=== PATIENT | female | born 1955 | race Caucasian/White ===

== ENCOUNTER 2017-10-08 12:27 | Emergency (ER) | payer OTHER ==
[~2017-10-08] VITALS: Ht 154.9 cm; Wt 106.0 kg
[2017-10-08 14:24] LABS: INFLUENZA A NONE DETECTED (NONE DETECT); INFLUENZA B NONE DETECTED (NONE DETECT)
[2017-10-08] MEDS ORDERED: AMOXICILLIN500 M2 PO (15:39)
[2017-10-08] MEDS ORDERED: VENTOLIN HFA IN (15:39)
[2017-10-08] MEDS ORDERED: MEDDOSEPAK PO (15:39)
[2017-10-08 15:46] VITALS: BP 149/83
== END 2017-10-08 15:56 | disposition home or self-care (01) | DRG 203 ==
LOC: ED 12:27
PROVIDERS: Emergency Medicine
DX: J20.9 Acute bronchitis, unspecified (principal); R05 Cough

== ENCOUNTER 2017-10-19 12:14 | Emergency (ER) | payer OTHER ==
[~2017-10-19] VITALS: Ht 154.9 cm; Wt 104.0 kg
[~2017-10-19 12:14] MED LIST: AMOXICILLIN500 M2 PO; MEDDOSEPAK PO; VENTOLIN HFA IN
[2017-10-19] MEDS ORDERED: CITALOPRAM HYDR10 MG PO (12:52)
[2017-10-19] MEDS ORDERED: PANTOPRAZOLE SO40 M1 PO (13:02)
[2017-10-19] MEDS ORDERED: ANASTROZOLE1 MG PO (13:04)
[2017-10-19] MEDS ORDERED: GLYBURIDE2.5 M1 PO (13:04)
[2017-10-19 14:19] VITALS: BP 143/76
[2017-10-19] MEDS ORDERED: ULTRAM50 M1 PO (14:21)
== END 2017-10-19 14:25 | disposition home or self-care (01) | DRG 125 ==
LOC: ED 12:14
DX: H11.31 Conjunctival hemorrhage, right eye (principal); H53.8 Other visual disturbances; S05.11XA Contusion of eyeball and orbital tissues, right eye, initial encounter; W01.190A Fall on same level from slipping, tripping and stumbling with subsequent striking against furniture, initial encounter; Y93.01 Activity, walking, marching and hiking; Y92.009 Unspecified place in unspecified non-institutional (private) residence as the place of occurrence of the external cause; R22.0 Localized swelling, mass and lump, head

== ENCOUNTER 2018-08-21 08:33 | Emergency (ER) | payer OTHER ==
[~2018-08-21] VITALS: Ht 154.9 cm; Wt 100.0 kg
[~2018-08-21 08:33] MED LIST changes: +ANASTROZOLE1 MG PO; +CITALOPRAM HYDR10 MG PO; +GLYBURIDE2.5 M1 PO; +PANTOPRAZOLE SO40 M1 PO; +ULTRAM50 M1 PO
[2018-08-21 09:19] LABS: HEMATOCRIT 42.5 % (37.0-47.0); HEMOGLOBIN 14.1 g/dl (12.0-16.0); IMMATURE GRANULOCYTES 0.4 % (0.0-5.0); MEAN CELL VOLUME 97.3 fL CALC (80.0-100.0); MEAN CORPUSCULAR HGB 32.3 pG CALC (26.0-32.0); MEAN CORPUSCULAR HGB CONC 33.2 g/L CALC (32.0-36.0); NEUT# 3.34 thou/uL (2.00-7.15); RED BLOOD COUNT 4.37 mill/uL (4.20-5.60); RED CELL DISTRI WIDTH 13.1 % (11.5-15.5)
[2018-08-21 09:46] LABS: ALKALINE PHOSPHATASE 145 u/l (38-126); ANION GAP 16 (6-22 (CALC)); BILIRUBIN, TOTAL 0.5 mg/dL (0.0-1.4); BUN 15 mg/dL (8-23); BUN/CREATININE RATIO 43 (12-20 (CALC)); CARBON DIOXIDE 24 mmol/l (22-30); CHLORIDE 101 mmol/l (95-108); CREATININE 0.4 mg/dL (0.5-1.0); GFR > 60 ML/MIN (>=60 (CALC)); GFR FOR AFR.AMER. > 60 ML/MIN (>=60 (CALC)); POTASSIUM 4.8 mmol/l (3.5-5.1); SGOT/AST 93 u/l (9-36); SODIUM 136 mmol/l (137-146); TOTAL PROTEIN 7.3 g/dL (6.3-8.2)
[2018-08-21] MEDS ORDERED: TESSALON PERLE100 MG PO (10:05)
[2018-08-21] MEDS ORDERED: TYLENOL # 31 TA1 PO (10:05)
[2018-08-21] MEDS ORDERED: PREDNISONE10 MG PO (10:05)
[2018-08-21 10:32] VITALS: BP 177/88
== END 2018-08-21 10:37 | disposition home or self-care (01) | DRG 203 ==
LOC: ED 08:33
PROVIDERS: Family Medicine
DX: J45.901 Unspecified asthma with (acute) exacerbation (principal); K40.90 Unilateral inguinal hernia, without obstruction or gangrene, not specified as recurrent; E11.9 Type 2 diabetes mellitus without complications; Z85.3 Personal history of malignant neoplasm of breast

== ENCOUNTER 2019-08-08 07:16 | Emergency (ER) | payer OTHER ==
[~2019-08-08] VITALS: Ht 154.9 cm; Wt 85.0 kg
[~2019-08-08 07:16] MED LIST changes: +PREDNISONE10 MG PO; +TESSALON PERLE100 MG PO; +TYLENOL # 31 TA1 PO
[2019-08-08] MEDS ORDERED: GLICLAZIDE PO (07:33)
[2019-08-08] MEDS ORDERED: CODEINE/GUAIFEN1 SOL PO (08:46)
[2019-08-08] MEDS ORDERED: PROVENTIL108 MCG/AC IN (08:46)
[2019-08-08] MEDS ORDERED: AUGMENTIN500TAB PO (08:46)
[2019-08-08] MEDS ORDERED: MEDDOSEPAK PO (08:46)
[2019-08-08 08:50] VITALS: BP 168/78
== END 2019-08-08 08:57 | disposition home or self-care (01) | DRG 203 ==
LOC: ED 07:16
DX: J45.909 Unspecified asthma, uncomplicated (principal)

== ENCOUNTER 2022-07-25 22:05 | Emergency (ER) | payer OTHER ==
[~2022-07-25] VITALS: Ht 154.9 cm; Wt 109.0 kg
[~2022-07-25 22:05] MED LIST changes: +AUGMENTIN500TAB PO; +CODEINE/GUAIFEN1 SOL PO; +GLICLAZIDE PO; +PROVENTIL108 MCG/AC IN
[2022-07-25 22:11] VITALS: BP 116/56
[2022-07-25 22:16] VITALS: BP 115/58
[2022-07-25 22:36] LABS: HEMATOCRIT 37.4 % (37.0-47.0); IMMATURE GRANULOCYTES 0.3 % (0.0-5.0); MEAN CORPUSCULAR HGB 27.7 pG CALC (26.0-32.0); MEAN CORPUSCULAR HGB CONC 30.5 g/dL CAL (32.0-36.0); NEUT# 3.87 thou/uL (2.00-7.15); RED BLOOD COUNT 4.12 mill/uL (4.20-5.60)
[2022-07-25 22:45] LABS: HEMOGLOBIN 11.4 g/dl (12.0-16.0); MEAN CELL VOLUME 90.8 fL CALC (80.0-100.0)
[2022-07-25 22:54] LABS: ALBUMIN 4.1 g/dL (3.2-5.0); ALKALINE PHOSPHATASE 146 u/l (38-126); BILIRUBIN, TOTAL 0.5 mg/dL (0.0-1.4); BUN 9 mg/dL (8-23); BUN/CREATININE RATIO 20 (12-20 (CALC)); CARBON DIOXIDE 23 mmol/l (22-30); CHLORIDE 106 mmol/l (95-108); CREATININE 0.4 mg/dL (0.5-1.0); GFR FOR AFR.AMER. > 60 ML/MIN (>=60 (CALC)); GFR OTHER RACES > 60 ML/MIN (>=60 (CALC)); SGOT/AST 59 u/l (9-36); SODIUM 141 mmol/l (137-146); TOTAL PROTEIN 7.7 g/dL (6.3-8.2)
[2022-07-25 22:56] LABS: ETHYL ALCOHOL 251 mg/dl (0-30)
[2022-07-25 22:57] LABS: ANION GAP 15 (6-22 (CALC)); POTASSIUM 3.4 mmol/l (3.5-5.1)
[2022-07-26 03:44] LABS: URINE BILIRUBIN - DIPSTICK NEGATIVE (NEGATIVE); URINE COLOR YELLOW; URINE GLUCOSE - DIPSTICK >=1000 mg/dL (NEGATIVE); URINE KETONE NEGATIVE (NEGATIVE); URINE PROTEIN - DIPSTICK NEGATIVE (NEG-TRACE); URINE SPECIFIC GRAVITY 1.015; URINE UROBILINOGEN - DIPSTICK 0.2 E.U./dL (0.2)
[2022-07-26 03:49] LABS: URINE BLOOD DIPSTICK NEGATIVE (NEGATIVE); URINE LEUK ESTERASE MODERATE (NEGATIVE); URINE NITRITE - DIPSTICK NEGATIVE (Negative)
[2022-07-26 03:52] LABS: URINE BACTERIA MODERATE hpf; URINE EPITHELIAL CELLS MODERATE EPI/hpf (0-FEW); URINE YEAST FEW hpf
[2022-07-26 06:23] VITALS: BP 115/58
== END 2022-07-26 00:49 | disposition home or self-care (01) | DRG 605 ==
LOC: ED 22:05
PROVIDERS: Family Medicine
DX: S80.01XA Contusion of right knee, initial encounter (principal); S00.83XA Contusion of other part of head, initial encounter; F10.129 Alcohol abuse with intoxication, unspecified; E11.9 Type 2 diabetes mellitus without complications; W18.30XA Fall on same level, unspecified, initial encounter; Y92.009 Unspecified place in unspecified non-institutional (private) residence as the place of occurrence of the external cause; Y90.8 Blood alcohol level of 240 mg/100 ml or more